=== PATIENT | male | born 1975 | race African-American/Black ===

== ENCOUNTER 2021-09-30 04:08 | Observation (INO) | payer OTHER ==
[2021-09-30] MEDS ORDERED: morphine CARPU-JECT 4 MG/1 ML DISP.SYRIN IVPUSH ONE (04:29)
[2021-09-30] MEDS ORDERED: HYDROmorphone HCl 2 MG/ML VIAL IVPUSH ONE (04:32)
[2021-09-30] MEDS ORDERED: SODIUM CHLORIDE 0.9% 500 ML INFUS.BAG IV ONE (04:32)
[2021-09-30] MEDS ORDERED: HYDROmorphone HCl 2 MG/ML VIAL ONE ×3 (04:32→15:25)
[2021-09-30] MEDS ORDERED: ONDANSETRON 4 MG/2 ML VIAL IVPUSH ONE (04:32)
[2021-09-30 05:10] LABS: MEAN PLT VOLUME 8.7 fl (7.5-11.1); RBC 4.68 M/mm3 (4.00-5.60)
[2021-09-30 05:30] LABS: ALBUMIN 4.2 g/dl (3.4-5.0); BLOOD UREA NITROGEN 14.7 mg/dL (7-18); CALCIUM 9.1 mg/dL (8.5-10.1)
[2021-09-30 05:32] LABS: CREATININE 1.1 mg/dL (0.55-1.3)
[2021-09-30 05:34] LABS: BILIRUBIN,TOTAL 0.4 mg/dL (0.2-1); TOT PROT 7.9 g/dl (6.4-8.2)
[2021-09-30 05:56] LABS: HEMOGLOBIN 8.8 GM/dL (11.7-16.9); MCHC 30.2 g/dl (32.0-35.9); PLATELET COUNT 326 10^3/uL (134-434); RDW 21.1 % (11.9-15.9); WHITE BLOOD COUNT 6.1 K/mm3 (4.0-10.0)
[2021-09-30 05:57] LABS: MCH 18.7 pg (25.7-33.7)
[2021-09-30 05:58] LABS: ADD RBC MORPHOLOGY YES
[2021-09-30 06:06] LABS: INR 1.09 (0.83-1.09); PROTHROMBIN TIME (PATIENT) 12.6 SEC (9.7-13.0)
[2021-09-30 06:08] LABS: ACTIVATED PTT 29.6 SECONDS (25.2-36.5)
[2021-09-30] MEDS ORDERED: HYDROmorphone HCL CARPU-JECT 2 MG/1 ML DISP.SYRIN IVPUSH ONE (07:59)
[2021-09-30] MEDS ORDERED: ACETAMINOPHEN 1000 MG/100 ML BAG IVPB ONE (08:51)
[2021-09-30] MEDS ORDERED: ACETAMINOPHEN INJECTION 100 ML IVPB ONE (09:47)
[2021-09-30 11:14] LABS: ANISOCYTOSIS 0; MACROCYTOSIS 0; OVALOCYTE 1+
[2021-09-30] MEDS: PANTOPRAZOLE SODIUM 40 MG VIAL IVPUSH SCH (11:15)
[2021-09-30] MEDS: DEXTROSE 5%-0.45% SALINE 1,000 ML IV SCH ×2 (11:15→23:20)
[2021-09-30] MEDS ORDERED: PANTOPRAZOLE SODIUM 40 MG VIAL ONE (11:16)
[2021-09-30] MEDS ORDERED: amLODIPine BESYLATE 10 MG TABLET (FP) ONE (11:16)
[2021-09-30] MEDS: amLODIPine BESYLATE 10 MG TABLET (FP) PO SCH (11:30)
[2021-09-30] MEDS ORDERED: WITCH HAZEL 50% (TUCKS) 40 PAD/JAR PAD TP PRN (15:03)
[2021-09-30] MEDS ORDERED: POLYETHYLENE GLYCOL (HEALTHYLAX) 3350 17 GM PACKET ONE (15:26)
[2021-09-30] MEDS: POLYETHYLENE GLYCOL (HEALTHYLAX) 3350 17 GM PACKET PO SCH (15:30)
[2021-09-30] MEDS: HYDROmorphone HCl 2 MG/ML VIAL IVPB PRN ×2 (15:48→20:32)
[2021-09-30 16:52] VITALS: BMI 30.4
[2021-09-30] MEDS: ACETAMINOPHEN 1000 MG/100 ML BAG IVPB PRN (18:02)
[2021-09-30] MEDS: HYDROCORTISONE 2.5% TOPICAL CREAM 30 GM TUBE TP SCH (21:11)
[2021-10-01] MEDS: HYDROmorphone HCl 2 MG/ML VIAL IVPB PRN ×3 (03:19→14:28)
[2021-10-01] MEDS: ACETAMINOPHEN 1000 MG/100 ML BAG IVPB PRN (05:00)
[2021-10-01 08:06] VITALS: BP 150/84; PULSE 69; TEMP 98.4
[2021-10-01] MEDS: PANTOPRAZOLE SODIUM 40 MG VIAL IVPUSH SCH (09:43)
[2021-10-01] MEDS: HYDROCORTISONE 2.5% TOPICAL CREAM 30 GM TUBE TP SCH (09:43)
[2021-10-01] MEDS: amLODIPine BESYLATE 10 MG TABLET (FP) PO SCH (09:43)
[2021-10-01] MEDS: POLYETHYLENE GLYCOL (HEALTHYLAX) 3350 17 GM PACKET PO SCH (11:23)
[2021-10-01] MEDS: DEXTROSE 5%-0.45% SALINE 1,000 ML IV SCH (13:23)
== END 2021-10-01 15:11 | disposition short-term general hospital (02) ==
LOC: JER 04:08 → JERBED 09:19 → J5S 16:34
PROVIDERS: ADMIT Internal Medicine
PROC: 3E0337Z Introduction of Electrolytic and Water Balance Substance into Peripheral Vein, Percutaneous Approach (ICD-10-PCS; principal; 2021-09-30)
PROC: 3E033GC Introduction of Other Therapeutic Substance into Peripheral Vein, Percutaneous Approach (ICD-10-PCS; 2021-09-30)
PROC: 3E033NZ Introduction of Analgesics, Hypnotics, Sedatives into Peripheral Vein, Percutaneous Approach (ICD-10-PCS; 2021-09-30)
DX: K64.5 Perianal venous thrombosis (principal); K64.8 Other hemorrhoids; D50.0 Iron deficiency anemia secondary to blood loss (chronic); I10 Essential (primary) hypertension; E66.9 Obesity, unspecified; Z68.30 Body mass index [BMI] 30.0-30.9, adult; Z29.9 Encounter for prophylactic measures, unspecified
CPT/HCPCS: 36415; 80053; 85025; 85610; 85730; 86850; 86900; 86901; 99285-25; C9803-CS; G0378; U0003; U0005

== ENCOUNTER 2021-11-04 12:25 | Emergency (ER) | payer OTHER ==
[2021-11-04 12:35] VITALS: BMI 29.9
[2021-11-04] MEDS ORDERED: morphine CARPU-JECT 4 MG/1 ML DISP.SYRIN IVPUSH ONE ×2 (13:19→17:33)
[2021-11-04] MEDS ORDERED: SODIUM CHLORIDE 1,000 ML IV STA (13:19)
[2021-11-04] MEDS ORDERED: LIDOCAINE HCL 5% TOP OINTMENT 50 GM TUBE TP ONE (13:19)
[2021-11-04] MEDS ORDERED: morphine SULFATE 4 MG/ML VIAL ONE ×2 (13:35→17:51)
[2021-11-04 13:44] LABS: HEMATOCRIT 26.7 % (35.4-49); HEMOGLOBIN 8.3 GM/dL (11.7-16.9); MCH 19.2 pg (25.7-33.7); MCHC 31.2 g/dl (32.0-35.9); MEAN CELL VOLUME 61.4 fl (80-96); MEAN PLT VOLUME 8.4 fl (7.5-11.1); PLATELET COUNT 621 10^3/uL (134-434); RBC 4.35 M/mm3 (4.00-5.60); RDW 22.6 % (11.9-15.9); WHITE BLOOD COUNT 6.3 K/mm3 (4.0-10.0)
[2021-11-04 14:02] LABS: ALBUMIN 3.7 g/dl (3.4-5.0); BLOOD UREA NITROGEN 8.5 mg/dL (7-18); CALCIUM 9.1 mg/dL (8.5-10.1); MAGNESIUM 2.5 mg/dL (1.8-2.4)
[2021-11-04 14:05] LABS: CREATININE 1.2 mg/dL (0.55-1.3); PHOSPHOROUS 3.1 mg/dL (2.5-4.9)
[2021-11-04 14:07] LABS: BILIRUBIN,TOTAL 0.4 mg/dL (0.2-1); TOT PROT 7.7 g/dl (6.4-8.2)
[2021-11-04 14:41] LABS: ANISOCYTOSIS 1+; MACROCYTOSIS 0; PLATELET ESTIMATE INCREASED
[2021-11-04 18:34] VITALS: BP 133/78; PULSE 68; TEMP 98.9
[2021-11-04 19:08] LABS: URINE APPEARANCE CLEAR; URINE BILIRUBIN NEGATIVE (NEGATIVE); URINE COLOR YELLOW; URINE GLUCOSE (UA) NEGATIVE (NEGATIVE); URINE KETONE NEGATIVE (NEGATIVE); URINE LEUK ESTERASE NEGATIVE (NEGATIVE); URINE NITRITE NEGATIVE (NEGATIVE); URINE PROTEIN NEGATIVE (NEGATIVE); URINE UROBILINOGEN 0.2 mg/dL (0.2-1.0)
== END 2021-11-04 18:33 | disposition home or self-care (01) ==
LOC: JER 12:25
PROC: 3E033GC Introduction of Other Therapeutic Substance into Peripheral Vein, Percutaneous Approach (ICD-10-PCS; principal; 2021-11-04)
DX: T81.89XA Other complications of procedures, not elsewhere classified, initial encounter (principal); K62.89 Other specified diseases of anus and rectum
CPT/HCPCS: 36415; 74177-TC; 80053; 81003; 83735; 84100; 85025; 99285-25; Q9967